=== PATIENT | female | born 1965 | race Caucasian/White ===

== ENCOUNTER 2019-02-09 14:38 | Emergency (ER) | payer OTHER, BC ==
[2019-02-09 14:54] VITALS: BP 132/82
[2019-02-09] MEDS ORDERED: ACETAMINOPHEN 325 MG TABLET PO ONE (15:30)
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
== END 2019-02-09 15:53 | disposition home or self-care (01) ==
LOC: ER 14:38
DX: M54.2 Cervicalgia (principal); V49.40XA Driver injured in collision with unspecified motor vehicles in traffic accident, initial encounter
CPT/HCPCS: 99283